=== PATIENT | male | born 1975 | race African-American/Black ===

== ENCOUNTER 2022-03-07 19:33 | Emergency (ER) | payer MEDICAID ==
[~2022-03-07] VITALS: Ht 167.6 cm; Wt 77.1 kg
[2022-03-07 20:08] VITALS: BP 144/76
[2022-03-07] MEDS ORDERED: ONDA4TAB5 PO (20:10)
[2022-03-07] MEDS ORDERED: CARI350T PO (20:10)
[2022-03-07] MEDS: KETOROLAC TROMETHAMINE INJ 60 MG/2 ML VIAL IM ONE (20:15)
[2022-03-07] MEDS ORDERED: KETOROLAC TROMETHAMINE INJ 30 MG/ML VIAL ONE (20:16)
[2022-03-07] MEDS ORDERED: ONDANSETRON 4 MG TAB.RAPDIS ONE (20:16)
--- NOTE | 2022-03-07 20:25 | NUR ---
VERBAL ORDER 4MG [facility] IM
[2022-03-07] MEDS ORDERED: ONDANSETRON HCL/PF 4 MG/2 ML VIAL ONE (20:26)
[2022-03-07] MEDS: ONDANSETRON 4 MG TAB.RAPDIS SL ONE (20:28)
[2022-03-07] MEDS: ONDANSETRON HCL/PF 4 MG/2 ML VIAL IM ONE (20:28)
--- NOTE | 2022-03-07 20:30 | NUR ---
Patient discharged to home in stable condition. Written and verbal after care instructions given. Patient verbalizes understanding of instruction. pT ambulatory with a steady gait
== END 2022-03-07 20:38 | disposition home or self-care (01) ==
LOC: ER 19:47
DX: M54.50 Low back pain, unspecified (principal); R11.0 Nausea; Z60.2 Problems related to living alone; Z79.899 Other long term (current) drug therapy
CPT/HCPCS: 96372 ×2; 99284; J1885; J2405; Q0162

== ENCOUNTER 2022-10-30 09:52 | Emergency (ER) | payer MEDICAID ==
[~2022-10-30] VITALS: Ht 170.2 cm; Wt 77.1 kg
[~2022-10-30 09:52] MED LIST: CARI350T PO; ONDA4TAB5 PO
--- NOTE | 2022-10-30 09:52 | NUR ---
PATIENT ARRIVED C/C DIZZINESS AND NAUSEA. A/O X 3
[2022-10-30] MEDS ORDERED: MECLIZINE HCL 25 MG TABLET ONE (11:28)
[2022-10-30] MEDS ORDERED: ONDANSETRON HCL/PF 4 MG/2 ML VIAL ONE (11:28)
[2022-10-30] MEDS ORDERED: MECLIZINE HCL 12.5 MG TABLET PO ONE (11:30)
[2022-10-30] MEDS ORDERED: ONDANSETRON HCL/PF 4 MG/2 ML VIAL IM ONE (11:30)
[2022-10-30] MEDS ORDERED: MECL-159 PO (13:11)
[2022-10-30] MEDS ORDERED: ONDA4TAB11 PO (13:11)
--- NOTE | 2022-10-30 13:17 | NUR ---
Patient discharged to home in stable condition. Written and verbal after care instructions given. Patient verbalizes understanding of instruction.
[2022-10-30 13:20] VITALS: BP 138/72
== END 2022-10-30 13:20 | disposition home or self-care (01) ==
LOC: ER 09:53
DX: R42 Dizziness and giddiness (principal); R11.0 Nausea; Z60.2 Problems related to living alone; Z79.899 Other long term (current) drug therapy
CPT/HCPCS: 99283; 96372; J8597; J2405